=== PATIENT | male | born 1995 | race Caucasian/White ===

== ENCOUNTER 2024-10-30 09:33 | Outpatient (OUT) | payer OTHER, SELFPAY ==
--- NOTE | 2024-10-30 09:51 | XR_ITS ---
[address] [address] Patient Name: DAQUAN ROWLEY MRN: [id number] date: 1995 Sex: M Assigned Patient Location: [facility] Current Patient Location: [facility] Accession/Order Number: [id number] Exam Date: 10/30/2024 10:07 Report Date: 10/30/2024 10:10 At the request of: KULWANT SANDRA DO Procedure: XR lumbar spine 2-3V 2 views Lumbar Spine HISTORY: Chronic lumbar back pain COMPARISON: None POSTSURGICAL CHANGES: Number thoracic postsurgical change BONY ALIGNMENT: Straightening HYPERMOBILITY:No bending imaging. LISTHESIS:None FRACTURE: None DEGENERATIVE CHANGES: T12-L1 disc space narrowing. Adequate vertebral heights and disc spaces of lumbar spine. Lower lumbar facet degeneration SOFT TISSUES: Unremarkable BONY MINERALIZATION:Adequate XR/XR lumbar spine 2-3V IMPRESSION: Straightening of lumbar lordosis secondary to patient positioning or spasm. T12-L1 disc space narrowing. Impression dictated by: Kulwant Wallace M.D.10/30/2024 10:10 AM Dictation Location: [place] [address] Electronically authenticated by: [id number] Y Date: 10/30/2024 10:10
== END 2024-10-30 09:34 | disposition home or self-care (01) ==
PROVIDERS: PCP Family Medicine
DX: M51.369 Other intervertebral disc degeneration, lumbar region without mention of lumbar back pain or lower extremity pain (principal)
CPT/HCPCS: 72100